=== PATIENT | female | born 1995 | race African-American/Black ===

== ENCOUNTER 2016-07-21 09:50 | Emergency (ER) | payer MEDICAID ==
[~2016-07-21] VITALS: Ht 177.8 cm; Wt 54.4 kg
[2016-07-21 10:27] LABS: Basophils # (auto) 0 uL; Basophils % (auto) 0.4 % (0.0-2.0); Eosinophils # (auto) 0.1 uL; Eosinophils % (auto) 2.6 % (0.0-7.0); Hematocrit 36.9 % (36.0-46.0); Hemoglobin 12.6 g/dL (12.2-16.2); Lymphocytes # (auto) 1.4 uL; Lymphocytes % (auto) 32.3 % (10.0-50.0); Mean Corpuscular Hemoglobin 29.9 pg (28.0-32.0); Mean Corpuscular Hgb Conc. 34.1 g/dL (32.0-36.0); Mean Corpuscular Volume 87.6 fL (80.0-100.0); Mean Platelet Volume 8.8 fL (7.4-10.4); Monocytes # (auto) 0.5 uL; Monocytes % (auto) 10.8 % (0.0-12.0); Neutrophils # (auto) 2.4 uL; Neutrophils % (auto) 53.9 % (37.0-80.0); Platelet Count (auto) 221 10^3/uL (140-450); Red Cell Distribution Width 13.6 % (11.6-16.0); White Blood Cell 4.4 10^3/uL (4.4-10.8)
[2016-07-21 10:53] LABS: Albumin 3.4 g/dL (3.4-5.0); BUN/Creatinine Ratio 15.4; Calcium 8.4 mg/dL (8.5-10.1); Potassium 4.1 mmol/L (3.5-5.1)
[2016-07-21 10:56] LABS: Bilirubin, Total 0.4 mg/dL (0.2-1.0); Total Protein 7.3 g/dL (6.4-8.2)
[2016-07-21 13:39] LABS: Urine Bilirubin Negative (Negative); Urine Color Yellow (Yellow); Urine Glucose Normal (Normal); Urine Ketone Negative (Negative); Urine Mucus FEW (None Seen); Urine Nitrite Negative (Negative); Urine RBC 2 /hpf (0 - 4); Urine Squamous Epithelial Cell FEW /hpf (<5); Urine Urobilinogen Normal (Negative)
[2016-07-21 13:41] LABS: Urine Blood 2+ /uL (Negative)
[2016-07-21 14:30] VITALS: BP 103/54
== END 2016-07-21 17:25 | disposition home or self-care (01) ==
LOC: ER 09:50
DX: O34.81 Maternal care for other abnormalities of pelvic organs, first trimester (principal); N83.202 Unspecified ovarian cyst, left side; O99.331 Smoking (tobacco) complicating pregnancy, first trimester; F17.210 Nicotine dependence, cigarettes, uncomplicated; F12.10 Cannabis abuse, uncomplicated; Z91.010 Allergy to peanuts; Z3A.01 Less than 8 weeks gestation of pregnancy
CPT/HCPCS: 36415; 76801; 76817; 80053; 81001; 84702; 85025

== ENCOUNTER 2019-10-25 13:22 | Observation (INO) | payer MEDICAID ==
[~2019-10-25] VITALS: Ht 175.3 cm; Wt 63.5 kg
[2019-10-25] MEDS ORDERED: NIFEdipine 10 MG CAP PO ONE (16:00)
== END 2019-10-25 17:23 | disposition home or self-care (01) ==
LOC: LDRP 13:22
PROVIDERS: ADMIT Obstetrics & Gynecology; ATTEND Obstetrics & Gynecology
DX: O60.03 Preterm labor without delivery, third trimester (principal); Z87.51 Personal history of pre-term labor; Z3A.32 32 weeks gestation of pregnancy
CPT/HCPCS: 59025; 76815; 81002; G0378

== ENCOUNTER 2019-11-02 18:46 | Observation (INO) | payer MEDICAID ==
[2019-11-02 19:38] LABS: Urine Bacteria FEW /hpf (None Seen); Urine Blood Negative /uL (Negative); Urine Mucus FEW (None Seen); Urine Specific Gravity 1.036 (1.001-1.035); Urine WBC 10 /hpf (0 - 5)
[2019-11-02 20:29] LABS: Amphetamine Screen, Urine NEGATIVE (NEGATIVE); Barbiturate Scree,Urine NEGATIVE (NEGATIVE); Benzodiazephine Screen, Urine NEGATIVE (NEGATIVE); Cannabinoid Screen, Urine POSITIVE (NEGATIVE); Cocaine Screen, Urine NEGATIVE (NEGATIVE); Opiate Scree,Urine NEGATIVE (NEGATIVE); Phencyclidine Screen, Urine NEGATIVE (NEGATIVE)
== END 2019-11-02 20:26 | disposition home or self-care (01) ==
LOC: LDRP 18:46
PROVIDERS: ADMIT Obstetrics & Gynecology; ATTEND Obstetrics & Gynecology
DX: O13.3 Gestational [pregnancy-induced] hypertension without significant proteinuria, third trimester (principal); Z3A.33 33 weeks gestation of pregnancy; Z79.899 Other long term (current) drug therapy
CPT/HCPCS: 59025; 76815; 80307; 81001; 81002; G0378

== ENCOUNTER 2019-11-07 14:00 | Observation (INO) | payer MEDICAID | END 2019-11-07 15:35 | disposition home or self-care (01) | LOC: LDRP 14:00 | PROVIDERS: ADMIT Specialist; ATTEND Specialist | DX: O60.03 Preterm labor without delivery, third trimester (principal); Z3A.34 34 weeks gestation of pregnancy | CPT/HCPCS: 59025; 76815; 81002; G0378 ==

== ENCOUNTER 2019-11-18 09:18 | Observation (INO) | payer MEDICAID ==
[2019-11-18] MEDS ORDERED: NIF10C PO (10:43)
== END 2019-11-18 11:15 | disposition home or self-care (01) ==
LOC: LDRP 09:18
PROVIDERS: ADMIT Specialist; ATTEND Specialist
DX: O36.5930 Maternal care for other known or suspected poor fetal growth, third trimester, not applicable or unspecified (principal); O62.9 Abnormality of forces of labor, unspecified; Z3A.36 36 weeks gestation of pregnancy
CPT/HCPCS: 59025; 76818; 81002; G0378

== ENCOUNTER 2019-11-19 16:32 | Inpatient (IN) | payer MEDICAID ==
[~2019-11-19] VITALS: Ht 162.6 cm; Wt 65.3 kg
[~2019-11-19 16:32] MED LIST: NIF10C PO
[2019-11-19] MEDS ORDERED: LACTATED RINGER'S 1,000 ML IV ONE ×2 (17:15→23:15)
[2019-11-19] MEDS ORDERED: BETAMETHASONE ACET (6MG/ML) 5ML VIAL IM ONE (17:15)
[2019-11-19 18:00] LABS: Urine Bacteria FEW /hpf (None Seen); Urine Blood Negative /uL (Negative); Urine Mucus FEW (None Seen); Urine Specific Gravity 1.024 (1.001-1.035); Urine WBC 11 /hpf (0 - 5)
[2019-11-19 18:04] LABS: Amphetamine Screen, Urine NEGATIVE (NEGATIVE); Barbiturate Scree,Urine NEGATIVE (NEGATIVE); Benzodiazephine Screen, Urine NEGATIVE (NEGATIVE); Cannabinoid Screen, Urine POSITIVE (NEGATIVE); Cocaine Screen, Urine NEGATIVE (NEGATIVE); Phencyclidine Screen, Urine NEGATIVE (NEGATIVE)
[2019-11-19 18:10] LABS: Opiate Scree,Urine NEGATIVE (NEGATIVE)
[2019-11-19] MEDS ORDERED: LIDOCAINE 2%HCL (LOCAL ANESTH.) INJ 20ML MDV ID ONE (20:15)
[2019-11-19] MEDS ORDERED: DERMOPLAST 60ML BOTTLE TOP PRN (20:15)
[2019-11-19] MEDS ORDERED: LACT. RINGERS/OXYTOCIN 20UNITS 1,000 ML IV SCH (20:15)
[2019-11-19] MEDS ORDERED: LACTATED RINGER'S 1,000 ML IV SCH (20:15)
[2019-11-19] MEDS ORDERED: WITCH HAZEL-GLYCERIN PAD TOP PRN (20:15)
[2019-11-19] MEDS ORDERED: PHISODERM TOP SOLN 240ML BTL TOP PRN (20:15)
[2019-11-19 21:22] LABS: Basophils # (auto) 0 10 ^3/uL (0-0.2); Basophils % (auto) 0.1 % (0.0-2.0); Eosinophils # (auto) 0 10 ^3/uL (0-0.8); Eosinophils % (auto) 0.3 % (0.0-7.0); Hematocrit 34.1 % (36.0-46.0); Hemoglobin 11.4 g/dL (12.2-16.2); Lymphocytes # (auto) 1.7 10 ^3/uL (0.4-5.4); Lymphocytes % (auto) 10.2 % (10.0-50.0); Mean Corpuscular Hemoglobin 30.5 pg (28.0-32.0); Mean Corpuscular Hgb Conc. 33.5 g/dL (32.0-36.0); Monocytes # (auto) 0.4 10 ^3/uL (0-1.3); Monocytes % (auto) 2.6 % (0.0-12.0); Neutrophils # (auto) 14.2 10 ^3/uL (1.6-8.6); Neutrophils % (auto) 86.8 % (37.0-80.0); Platelet Count (auto) 143 10^3/uL (140-450); Red Blood Cells 3.75 10^6/uL (4.0-5.20); Red Cell Distribution Width 13.9 % (11.8-14.3); White Blood Cell 16.3 10^3/uL (4.4-10.8)
[2019-11-19 21:43] LABS: INR 0.94 (0.9-1.15); Partial Thromboplastin Time 28.7 sec (23.0-31.2)
[2019-11-19 22:37] LABS: Albumin 2.8 g/dL (3.4-5.0); BUN/Creatinine Ratio 18.4; Calcium 8.9 mg/dL (8.5-10.1); Potassium 3.9 mmol/L (3.5-5.1)
[2019-11-19 22:39] LABS: Bilirubin, Total 0.3 mg/dL (0.2-1.0)
[2019-11-19] MEDS ORDERED: ROPIVACAINE HCL 100 ML EPI SCH (22:45)
[2019-11-19] MEDS ORDERED: ePHEDrine SULFATE 50 MG/ML AMP IV ONE ×2 (22:45→23:15)
[2019-11-19] MEDS ORDERED: LIDOCAINE 2%HCL (LOCAL ANESTH.) INJ 20ML MDV IJ ONE ×2 (22:45→23:15)
[2019-11-19] MEDS ORDERED: NALOXONE HCL 0.4 MG/ML VIAL IV ONE ×2 (22:45→23:15)
[2019-11-19] MEDS ORDERED: SODIUM CHLORIDE 0.9% 500 ML IV PRN ×2 (22:45→23:15)
[2019-11-19] MEDS ORDERED: LACTATED RINGER'S 500 ML IV ONE (22:45)
[2019-11-19] MEDS ORDERED: fentaNYL CITRATE 100 MCG/2 ML VL IV ONE ×2 (22:45→23:15)
[2019-11-19] MEDS ORDERED: LIDOCAINE HCL 2 %PF INJ 10ML AMP IJ ONE ×2 (23:07→23:15)
[2019-11-19] MEDS ORDERED: fentaNYL 400mCg/200ml W ROPIVA 200 ML EPI SCH (23:15)
[2019-11-20] MEDS ORDERED: PENICILLIN G POT 5MIL/D5 50ML 50 ML IV ONE ×2 (03:00)
[2019-11-20] MEDS ORDERED: ONDANSETRON HCL 4 MG/2 ML VIAL IV PRN (03:45)
[2019-11-20] MEDS ORDERED: ACETAMINOPHEN 325 MG TAB PO PRN (05:30)
[2019-11-20] MEDS ORDERED: LACT. RINGERS/OXYTOCIN 20UNITS 1,000 ML IV ONE (05:30)
--- NOTE | 2019-11-20 06:30 | NUR ---
Ambulation: Patient OOB with standby assistance by RN. Patient ambulated to bathroom with steady gait. Patient able to void 400 ml without difficulty. Pericare teaching provided with returned demonstration by patient. Clean gown provided and bed linen changed. Patient ambulated back to bed with steady gait and no distress noted.
[2019-11-20] MEDS: IBUPROFEN 600 MG TAB PO PRN ×3 (06:48→23:07)
[2019-11-20] MEDS ORDERED: PENICILLIN G POTASSIUM 2,500,000 UNITS in D5W 5% 50 ML IV SCH ×4 (07:00)
[2019-11-20 11:03] VITALS: BP 103/55
--- NOTE | 2019-11-20 14:40 | NUR ---
Patient requests to go outside and smoke. Patient educated on risks of leaving unit without staff assistance. Patient verbalized understanding. Informed consent for smoking signed and IV discontinued. IV catheter intact, no signs or symptoms of infiltration noted upon removal.
--- NOTE | 2019-11-20 14:56 | NUR ---
Assessment SS consult regarding positive drug screen for THC. Baby drug screen was pending per bedside nurse. Discussed with pt UDS and source of positive results. Per patient she used CBD Oil and CBD Tea and stop when she found out she was . Patient denies smoking THC. Pt resides with [facility] and will have assistance with baby upon discharge. Pt has all supplies as well as car seat for baby and will be bottle/ (select one). Pt has medical insurance for herself/baby and will be following up with provider appt post discharge. Pt has transportation home upon discharge. Due to positive drug screen CPS contacted and report made to [facility] number: [phone].
[2019-11-20 15:15] VITALS: BP 105/58
--- NOTE | 2019-11-20 17:30 | NUR ---
RN walked into room and infant was lying on head of bed with pillows positioned all around her with head of bed at an incline. Reinforced infant safety measures and informed that baby must remain in the open crib if not being held while in the hospital. Patient and father of baby verbalized understanding and agree to comply.
[2019-11-20 19:00] VITALS: BP 118/59
[2019-11-20 23:00] VITALS: BP 110/76
[2019-11-21 03:00] VITALS: BP 94/53
[2019-11-21] MEDS: IBUPROFEN 600 MG TAB PO PRN (05:09)
--- NOTE | 2019-11-21 05:41 | NUR ---
PT STATES THAT SHE IS IN PAIN AT [facility] SITE. MOTRIN GIVEN. BABY TAKEN TO NURSERY FOR 24 HOUR CARE. DAD COMES OUT SLAMMING INTO DOORS STATING THAT PT NEEDS HELP. RN X2 AT BEDSIDE. VITALS TAKEN BLOOD PRESSURE 117/59 PULSE 71 RESP 16. PT IS ASKING FOR STRONGER MEDICATION. PT HAS LEFT UNIT TWICE ON MY SHIFT FOR A SMOKE BREAK. NURSE STATED TO PATIENT THAT SHE WILL NOT BE ABLE TO GO HOME IF PATIENT IS IN PAIN LIKE SHE IS. PT CALMED DOWN IMMEDIATELY. [facility] CALLED STATING THAT DAD CALLED THE POLICE DEPARTMENT STATING THE PATIENT IS IN PAIN. RN ASKED DAD IF HE CALLED THE POLICE STATION, HE STATED THAT " YES, BECAUSE I DIDN'T KNOW WHAT TO DO". DAD IS ON THE PHONE STATING THAT HE IS TRYING TO CALM DOWN BEFORE HE DOES SOMETHING. PT IN LAYING IN BED CALM. TYLENOL GIVEN.
--- NOTE | 2019-11-21 05:58 | NUR ---
THIS RN CHECKED ON PATIENT. PT IS UP WASHING BOTTLES AND STATES THAT HER PAIN IS GONE.
[2019-11-21 07:10] VITALS: BP 114/69
[2019-11-21 10:55] VITALS: BP 123/73
--- NOTE | 2019-11-21 11:00 | NUR ---
Discharge: Discharge instructions given as ordered. Pt encouraged to follow up with PLUG MAKING OPERATOR as instructed. All questions and concerns addressed. Patient verbalized understanding. Medication reconciliation completed and copy given to patient. . Patient encouraged to prepare to depart unit.
--- NOTE | 2019-11-21 11:05 | NUR ---
Discharge: Patient taken to vehicle via wheelchair with all personal belongings, accompanied by staff and family member. No distress noted at time of departure, no adverse changes in status since initial assessment.
== END 2019-11-21 11:05 | disposition home or self-care (01) | DRG 560 ==
LOC: LDRP 16:32 → OBSVTOIN 20:00
PROVIDERS: ADMIT Specialist; ATTEND Specialist
PROC: 00HU33Z Insertion of Infusion Device into Spinal Canal, Percutaneous Approach (ICD-10-PCS; 2019-11-19)
PROC: 3E0R3BZ Introduction of Anesthetic Agent into Spinal Canal, Percutaneous Approach (ICD-10-PCS; 2019-11-19)
PROC: 10E0XZZ Delivery of Products of Conception, External Approach (ICD-10-PCS; principal; 2019-11-20)
DX: O36.5930 Maternal care for other known or suspected poor fetal growth, third trimester, not applicable or unspecified (principal); O60.14X0 Preterm labor third trimester with preterm delivery third trimester, not applicable or unspecified; O76 Abnormality in fetal heart rate and rhythm complicating labor and delivery; O70.0 First degree perineal laceration during delivery; Z3A.36 36 weeks gestation of pregnancy; Z37.0 Single live birth; Z20.828 Contact with and (suspected) exposure to other viral communicable diseases; Z91.010 Allergy to peanuts; Z91.19 Patient's noncompliance with other medical treatment and regimen; O99.324 Drug use complicating childbirth; O99.314 Alcohol use complicating childbirth; F12.90 Cannabis use, unspecified, uncomplicated
CPT/HCPCS: 36415; 59025; 59409; 62282; 80053; 80307; 81001; 81002; 84112; 85025; 85610; 85730; 86850; 86900; 86901; 87426; 94762; 96360; 96361; 96365; 96366; G0378; J2540; J2590; J7060